=== PATIENT | female | born 1980 | race Two or more races ===

== ENCOUNTER 2016-11-30 06:05 | Day surgery (SDC) | payer MEDICAID ==
[2016-11-29 08:37] VITALS: Ht 152.4 cm; Wt 75.0 kg
[2016-11-30] VITALS (16 sets, daily range): BP systolic 112–174; BP diastolic 59–103; PULSE 62–82; RESP 13–18
[~2016-11-30] VITALS: Ht 152.4 cm; Wt 75.0 kg
[~2016-11-30 06:05] MED LIST: CEFAZOLIN 2 GM/50 ML (PMX) 50 ML IVPB SCH; LACTATED RINGER'S 1,000 ML IV* SCH
[2016-11-30 07:00] LABS: ADD SCAN DIFF NO
[2016-11-30] MEDS ORDERED: CEFAZOLIN 1 GM INJ ONE (07:00)
[2016-11-30 07:14] LABS: BASOPHILS % 0.3 % (0.0-2.0); EOSINOPHILS # 0.1 10^3/ul (0.0-0.5); EOSINOPHILS % 1.9 % (0.0-7.0); HEMATOCRIT 40.4 % (37.0-47.0); LYMPHOCYTES # 2.4 10^3/ul (0.8-2.9); LYMPHOCYTES % 36.2 % (15.0-51.0); MEAN CORPUSCULAR HEMOGLOBIN 28.4 pg (29.0-33.0); MEAN CORPUSCULAR HGB CONC 32.2 g/dl (32.0-37.0); MEAN CORPUSCULAR VOLUME 88.2 fl (82.0-101.0); MONOCYTE # 0.5 10^3/ul (0.3-0.9); MONOCYTES % 6.9 % (0.0-11.0); NEUTROPHIL # 3.6 10^3/ul (1.6-7.5); NEUTROPHILS % 54.4 % (39.0-77.0); PLATELET COUNT 254 10^3/UL (140-415); RED BLOOD COUNT 4.58 10^6/ul (4.20-5.40); RED CELL DISTRIBUTION WIDTH 12.7 % (11.5-14.5); WHITE BLOOD COUNT 6.7 10^3/ul (4.8-10.8)
[2016-11-30 07:21] LABS: INR 0.89; PARTIAL THROMBOPLASTIN TIME 25.6 Sec (25.0-35.0); PT RATIO 0.9
[2016-11-30] MEDS ORDERED: MIDAZOLAM 1 MG/ML 2 ML INJ ONE (07:31)
[2016-11-30] MEDS ORDERED: LIDOCAINE 2% (SDV) 5 ML INJ ONE (07:31)
[2016-11-30] MEDS ORDERED: PROPOFOL 20 ML ONE (07:31)
[2016-11-30] MEDS ORDERED: FENTAnyl 50 MCG/ML VIAL ONE (07:31)
[2016-11-30] MEDS ORDERED: METF500T3 PO (07:32)
[2016-11-30] MEDS ORDERED: ONDANSETRON 4 MG INJ ONE (07:44)
[2016-11-30] MEDS ORDERED: METOCLOPRAMIDE 10 MG INJ ONE (07:45)
[2016-11-30] MEDS ORDERED: KETOROLAC 30 MG INJ ONE (07:46)
[2016-11-30] MEDS ORDERED: PROCHLORPERAZINE 10 MG INJ IV PRN (08:30)
[2016-11-30] MEDS ORDERED: ONDANSETRON 4 MG INJ IV PRN (08:30)
[2016-11-30] MEDS ORDERED: FENTAnyl 50 MCG/ML VIAL IV PRN (08:30)
[2016-11-30] MEDS ORDERED: INSULIN ASPART [NOVOLOG] 3 ML PEN SC ONE (08:30)
[2016-11-30] MEDS ORDERED: DIPHENHYDRAMINE 50 MG INJ IV PRN (08:30)
[2016-11-30] MEDS ORDERED: hydrALAzine 20 MG INJ IV PRN (08:30)
[2016-11-30] MEDS ORDERED: LABETALOL HCL 20MG INJ IV PRN (08:30)
[2016-11-30] MEDS ORDERED: MEPERIDINE 25 MG INJ IV PRN (08:30)
[2016-11-30] MEDS ORDERED: morphine (1 MG/ML) 10ML SYRINGE IV PRN (08:30)
[2016-11-30] MEDS ORDERED: OXYCODONE/ACETAMINOPHEN (5/325) TAB PO PRN ×2 (08:30)
--- NOTE | 2016-11-30 08:39 | OPR ---
DATE OF OPERATION: PREOPERATIVE DIAGNOSIS: The patient desires permanent sterilization by Essure hysteroscopic techniq ue. She declined laparoscopic tubal ligation. POSTOPERATIVE DIAGNOSIS: The patient desires permanent sterilization by Essure hysteroscopic techni que, she declined laparoscopic tubal ligation. OPERATION PERFORMED: Essure hysteroscopic tubal ligation. SURGEON: Dr. Mcintosh ESTIMATED BLOOD LOSS: Minimal. COMPLICATIONS: None. FINDINGS: Normal uterine cavity. CONSENT: Please see preop H and P that was done in my office for the consent process. DESCRIPTION OF PROCEDURE: She was taken to the operating room and general anesthesia was induced. She was prepped and draped in the usual sterile fashion. A surgical timeout was done. The anterior lip of the cervix was grasped using a single tooth tenaculum and the cervix was dilated. Bilateral tubal ostia were visualized. The Essure implant was inserted in the right tube. The black line _ ____ hard stop. Gold line was visualized, the Essure implant was released and 3 cords were visualiz ed. The same procedure was done on the left side and 2 cords were visualized. The patient tolerate d the procedure well, without any complications. All instruments were removed. No bleeding from th e tenaculum site. Dictated By: LEXI JARVIS/NARAYAN Conf#: [id number] DID#: [id number]
[2016-11-30] MEDS ORDERED: DEXTROSE 50% 50 ML SYRINGE IV PRN ×2 (09:00)
[2016-11-30] MEDS ORDERED: GLUCOSE GEL 15 GRAM TUBE BUCCAL PRN (09:00)
[2016-11-30] MEDS ORDERED: GLUCAGON 1 MG INJ IM PRN (09:00)
[2016-11-30] MEDS ORDERED: GLUCOSE GEL 15 GRAM TUBE PO PRN ×2 (09:00)
--- NOTE | 2016-11-30 17:27 | RADRPT ---
Vent Rate: 63 bpm RR Interval: 0 msec [place] Interval: 152 msec QRS Duration: 80 msec QT Interval: 396 msec QTC Interval: 405 msec P-R-T [place]: 31 - 51 - 60 degrees Normal sinus rhythm Normal ECG Electronically Signed By: Quinn Patiño [id number]
== END 2016-11-30 11:25 | disposition home or self-care (01) ==
LOC: SDS 06:05
PROVIDERS: ATTEND Specialist
DX: Z30.2 Encounter for sterilization (principal); E11.9 Type 2 diabetes mellitus without complications; I10 Essential (primary) hypertension; E66.9 Obesity, unspecified; Z68.32 Body mass index [BMI] 32.0-32.9, adult
CPT/HCPCS: 82962; 85025; 85610; 85730; 93005; A4264; J0690; J1815; J1885; J2250; J2405; J2765; J3010